=== PATIENT | male | born 1980 | race Caucasian/White ===

== ENCOUNTER 2016-04-19 13:47 | Emergency (ER) | payer OTHER ==
[2016-04-19] MEDS ORDERED: AUGMENTIN 875 MG TAB As Ordered ONE (14:27)
--- NOTE | 2016-04-19 14:41 | EDDOCDS ---
Nurse's Notes [facility] Name: Mikael Oliveira Age: 35 yrs Sex: Male : 1980 Arrival Date: 04/19/2016 Time: 13:47 Bed 13 Private MD: NO PRIMARY PHYSICIAN, . Diagnosis: Dental caries Presentation: 04/19 13:59 Presenting complaint: Patient states: "I need to have a couple of teeth pulled, but ck1 unable to get into my Dentist" C/O pain, worried about infection. Adult Sepsis Screening: The patient does not have new or worsening altered mentation. Patient's respiratory rate is less than 22. Systolic blood pressure is greater than 100. Patient has a qSOFA score of 0- Negative Sepsis Screen. Suicide/Homicide risk assessment- the patient denies having any suicidal and/or homicidal ideations and does not present with any other emotional, behavioral or mental health complaints. 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 Transition of care: patient was not received from another setting of care. 13:59 Acuity: JAMAAL Level 5 ck1 13:59 Method Of Arrival: Walkin/Carried/Asstd ck1 Triage Assessment: 14:01 General: Appears in no apparent distress, comfortable, Behavior is appropriate for age, ck1 cooperative. Pain: Location: mouth Pain currently is 1 out of 10 on a pain scale. HIV screening NA for this visit Offered previously. Neurological: Level of Consciousness is awake, alert, obeys commands, Oriented to person, place, time. EENT: Poor dentition noted. Reports pain Pain is 2 out of 10 on a pain scale. Respiratory: Respiratory effort is unlabored, Respiratory pattern is regular, symmetrical. Derm: Skin is intact, is healthy with good turgor, Skin is pink, warm & dry. Musculoskeletal: No deficits noted. Historical: - Allergies: No known drug Allergies; - Home Meds: 1. Tylenol 250 mg Oral (Last dose: 04/19/2016 12:45) 2. Tylenol 325 mg Oral tab 2 tabs PRN (Last dose: 04/19/2016 09:30) - PMHx: none; - PSHx: none; - Social history: Smoking status: Patient uses tobacco products, heavy tobacco smoker. No barriers to communication noted, The patient speaks fluent Indian, Speaks appropriately for age. - Family history: No immediate family members are acutely ill. - : The pt / caregiver states he / she is not on anticoagulants. Home medication list is obtained from the patient. - Exposure Risk Screening:: None identified. Screenin:38 Screening information is obtained from the patient. Fall risk: No risks identified. mb9 Assistance ADL's: requires no assistance with activities of daily living. Abuse/DV Screen: The patient / caregiver reports he/she is: not in a situation that causes fear, pain or injury. Nutritional screening: No deficits noted. Advance Directives: There is no active DNR order. home support is adequate. Assessment: 14:38 General: Appears uncomfortable, Behavior is appropriate for age, cooperative. Pain: mb9 Location: mouth Pain currently is 6 out of 10 on a pain scale. Respiratory: Airway is patent Respiratory effort is even, unlabored. Vital Signs: 13:49 BP 144 / 78; Pulse 98; Resp 18 S; Temp 97.8(O); Pulse Ox 100% on R/A; Weight 61.23 kg gr2 (R); Height 5 ft. 7 in. (170.18 cm) (R); Pain 3/10; 13:49 Body Mass Index 21.14 (61.23 kg, 170.18 cm) gr2 Vitals: 13:49 Log In Time: April 19, 2016 at 13:49. gr2 ED Course: 13:49 Patient visited by Juliocesar Marrero. gr2 13:49 NO PRIMARY PHYSICIAN, . is Private Physician. gr2 13:49 Patient moved to Waiting gr2 13:50 Patient visited by Juliocesar Marrero. gr2 13:50 Patient moved to Pre RCE gr2 14:00 Triage Initiated ck1 14:14 Arcadio Palmer MD is Attending Physician. br1 14:14 Patient moved to 13 ck1 14:21 Patient visited by Arcadio Palmer MD. br1 14:24 Your, Dentist is Referral Physician. br1 14:38 The patient / caregiver is instructed regarding the plan of care and ED course. mb9 14:38 No IV's were initiated during this patient's visit. No procedures done that require mb9 assistance. Administered Medications: 14:38 Drug: Amoxicillin-Clavulanate 1 tabs [amoxicillin 875 mg-potassium clavulanate 125 mg mb9 tablet (1 tabs)] Route: PO; Order Results: There are currently no results for this order. Outcome: 14:25 Discharge ordered by Provider. br1 14:38 Discharge Assessment: Patient awake, alert and oriented x 3. No cognitive and/or mb9 functional deficits noted. Patient verbalized understanding of disposition instructions. patient administered narcotics - no. The following High Risk Discharge criteria are identified: None. Discharged to home ambulatory. Condition: good Condition: stable Condition: improved. Discharge instructions given to patient, Instructed on discharge instructions, follow up and referral plans. medication usage, no driving heavy equipment, diet, Demonstrated understanding of instructions, medications, Pt was receptive of discharge instructions/ teaching. Prescriptions given X 2. No special radiology studies were completed. Property :Personal belongings accompany Pt. 14:39 Patient left the ED. mb9 Signatures: Minda Zuniga,RN RN ck1 Arcadio Palmer MD MD br1 Juliocesar Marrero gr2 Carmine Quinonez RN RN mb9 SABI
--- NOTE | 2016-04-19 14:41 | EDDOCDS ---
Physician Documentation [facility] Name: Mikael Oliveira Age: 35 yrs Sex: Male : 1980 Arrival Date: 04/19/2016 Time: 13:47 Bed 13 Private MD: NO PRIMARY PHYSICIAN, . Disposition: 04/19/16 14:25 Discharged to Home/Self Care. Impression: Dental caries. - Condition is Stable. - Discharge Instructions: Dental Pain. - Prescriptions for Percocet 5- 325 mg Oral Tablet - take 1 tablet by ORAL route every 6 hours As needed MDD: 4 tabs; 10 tablet. Augmentin 875- 125 mg Oral Tablet - take 1 tablet by ORAL route every 12 hours for 7 days; 14 tablet. - Work Release Form - 1 day, Medication Reconciliation, Local Pharmacy Hours, Dental Referral List form. - Follow up: Your, Dentist; When: 2 - 3 days; Reason: Recheck today's complaints. - Problem is an ongoing problem. - Symptoms have worsened. - Notes: You were seen in the ED for dental pain. You may take the antibiotics as written and may take Percocet as needed for pain (no driving or operating machinery while on this medicine). You will need to arrange follow up with a dentist today for ongoing care - please call to arrange to be seen. Return to the ED for any uncontrolled pain, worsening swelling, fever, trouble breathing or swallowing or any other concerns. Historical: - Allergies: No known drug Allergies; - Home Meds: 1. Tylenol 250 mg Oral (Last dose: 04/19/2016 12:45) 2. Tylenol 325 mg Oral tab 2 tabs PRN (Last dose: 04/19/2016 09:30) - PMHx: none; - PSHx: none; - Social history: Smoking status: Patient uses tobacco products, heavy tobacco smoker. No barriers to communication noted, The patient speaks fluent Latvian, Speaks appropriately for age. - Family history: No immediate family members are acutely ill. - : The pt / caregiver states he / she is not on anticoagulants. Home medication list is obtained from the patient. - Exposure Risk Screening:: None identified. Vital Signs: 04/19 13:49 BP 144 / 78; Pulse 98; Resp 18 S; Temp 97.8(O); Pulse Ox 100% on R/A; Weight 61.23 kg / gr2 134.99 lbs (R); Height 5 ft. 7 in. (170.18 cm) (R); Pain 3/10; 13:49 Body Mass Index 21.14 (61.23 kg, 170.18 cm) gr2 MDM: 14:21 Amoxicillin-Clavulanate 875 mg 1 tabs PO once ordered. br1 14:38 Financial registration complete. mm15 Administered Medications: 14:38 Drug: Amoxicillin-Clavulanate 1 tabs [amoxicillin 875 mg-potassium clavulanate 125 mg mb9 tablet (1 tabs)] Route: PO; Signatures: Minda ZunigaRN RN ck1 Arcadio Palmer MD MD br1 Amrik Thapa mm15 Carmine Quinonez RN RN mb9 MTDHemalatha
--- NOTE | 2016-04-21 15:40 | EDDOCDS ---
Physician Documentation [facility] Name: Mikael Oliveira Age: 35 yrs Sex: Male : 1980 Arrival Date: 04/19/2016 Time: 13:47 Bed 13 Private MD: NO PRIMARY PHYSICIAN, . Disposition: 04/19/16 14:25 Discharged to Home/Self Care. Impression: Dental caries. - Condition is Stable. - Discharge Instructions: Dental Pain. - Prescriptions for Percocet 5- 325 mg Oral Tablet - take 1 tablet by ORAL route every 6 hours As needed MDD: 4 tabs; 10 tablet. Augmentin 875- 125 mg Oral Tablet - take 1 tablet by ORAL route every 12 hours for 7 days; 14 tablet. - Work Release Form - 1 day, Medication Reconciliation, Local Pharmacy Hours, Dental Referral List form. - Follow up: Your, Dentist; When: 2 - 3 days; Reason: Recheck today's complaints. - Problem is an ongoing problem. - Symptoms have worsened. - Notes: You were seen in the ED for dental pain. You may take the antibiotics as written and may take Percocet as needed for pain (no driving or operating machinery while on this medicine). You will need to arrange follow up with a dentist today for ongoing care - please call to arrange to be seen. Return to the ED for any uncontrolled pain, worsening swelling, fever, trouble breathing or swallowing or any other concerns. Historical: - Allergies: No known drug Allergies; - Home Meds: 1. Tylenol 250 mg Oral (Last dose: 04/19/2016 12:45) 2. Tylenol 325 mg Oral tab 2 tabs PRN (Last dose: 04/19/2016 09:30) - PMHx: none; - PSHx: none; - Social history: Smoking status: Patient uses tobacco products, heavy tobacco smoker. No barriers to communication noted, The patient speaks fluent Danish, Speaks appropriately for age. - Family history: No immediate family members are acutely ill. - : The pt / caregiver states he / she is not on anticoagulants. Home medication list is obtained from the patient. - Exposure Risk Screening:: None identified. Vital Signs: 04/19 13:49 BP 144 / 78; Pulse 98; Resp 18 S; Temp 97.8(O); Pulse Ox 100% on R/A; Weight 61.23 kg / gr2 134.99 lbs (R); Height 5 ft. 7 in. (170.18 cm) (R); Pain 3/10; 13:49 Body Mass Index 21.14 (61.23 kg, 170.18 cm) gr2 MDM: 14:21 Amoxicillin-Clavulanate 875 mg 1 tabs PO once ordered. br1 14:38 Financial registration complete. mm15 14:51 [facility] Payment Agreement was scanned into [employer] and attached to record. mm15 04/20 12:23 T-Sheet-- Draft Copy was scanned into [employer] and attached to record. gb Administered Medications: 04/19 14:38 Drug: Amoxicillin-Clavulanate 1 tabs [amoxicillin 875 mg-potassium clavulanate 125 mg mb9 tablet (1 tabs)] Route: PO; Signatures: Dipika Martin, Reg Reg gb Minda ZunigaRN RN ck1 Arcadio Palmer MD MD br1 Amrik Thapa mm15 Carmine Quinonez,JOSE RN mb9 The chart was reviewed and I authenticate all verbal orders and agree with the evaluation and treatment provided.Attachments: 14:51 [facility] Payment Agreement mm15 04/20 12:23 T-Sheet-- Draft Copy gb Chart Complete MTDD
--- NOTE | 2016-04-21 15:40 | EDDOCDS ---
Nurse's Notes [facility] Name: Mikael Oliveira Age: 35 yrs Sex: Male : 1980 Arrival Date: 04/19/2016 Time: 13:47 Bed 13 Private MD: NO PRIMARY PHYSICIAN, . Diagnosis: Dental caries Presentation: 04/19 13:59 Presenting complaint: Patient states: "I need to have a couple of teeth pulled, but ck1 unable to get into my Dentist" C/O pain, worried about infection. Adult Sepsis Screening: The patient does not have new or worsening altered mentation. Patient's respiratory rate is less than 22. Systolic blood pressure is greater than 100. Patient has a qSOFA score of 0- Negative Sepsis Screen. Suicide/Homicide risk assessment- the patient denies having any suicidal and/or homicidal ideations and does not present with any other emotional, behavioral or mental health complaints. 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 Transition of care: patient was not received from another setting of care. 13:59 Acuity: JAMAAL Level 5 ck1 13:59 Method Of Arrival: Walkin/Carried/Asstd ck1 Triage Assessment: 14:01 General: Appears in no apparent distress, comfortable, Behavior is appropriate for age, ck1 cooperative. Pain: Location: mouth Pain currently is 1 out of 10 on a pain scale. HIV screening NA for this visit Offered previously. Neurological: Level of Consciousness is awake, alert, obeys commands, Oriented to person, place, time. EENT: Poor dentition noted. Reports pain Pain is 2 out of 10 on a pain scale. Respiratory: Respiratory effort is unlabored, Respiratory pattern is regular, symmetrical. Derm: Skin is intact, is healthy with good turgor, Skin is pink, warm & dry. Musculoskeletal: No deficits noted. Historical: - Allergies: No known drug Allergies; - Home Meds: 1. Tylenol 250 mg Oral (Last dose: 04/19/2016 12:45) 2. Tylenol 325 mg Oral tab 2 tabs PRN (Last dose: 04/19/2016 09:30) - PMHx: none; - PSHx: none; - Social history: Smoking status: Patient uses tobacco products, heavy tobacco smoker. No barriers to communication noted, The patient speaks fluent Colombian, Speaks appropriately for age. - Family history: No immediate family members are acutely ill. - : The pt / caregiver states he / she is not on anticoagulants. Home medication list is obtained from the patient. - Exposure Risk Screening:: None identified. Screenin:38 Screening information is obtained from the patient. Fall risk: No risks identified. mb9 Assistance ADL's: requires no assistance with activities of daily living. Abuse/DV Screen: The patient / caregiver reports he/she is: not in a situation that causes fear, pain or injury. Nutritional screening: No deficits noted. Advance Directives: There is no active DNR order. home support is adequate. Assessment: 14:38 General: Appears uncomfortable, Behavior is appropriate for age, cooperative. Pain: mb9 Location: mouth Pain currently is 6 out of 10 on a pain scale. Respiratory: Airway is patent Respiratory effort is even, unlabored. Vital Signs: 13:49 BP 144 / 78; Pulse 98; Resp 18 S; Temp 97.8(O); Pulse Ox 100% on R/A; Weight 61.23 kg gr2 (R); Height 5 ft. 7 in. (170.18 cm) (R); Pain 3/10; 13:49 Body Mass Index 21.14 (61.23 kg, 170.18 cm) gr2 Vitals: 13:49 Log In Time: April 19, 2016 at 13:49. gr2 ED Course: 13:49 Patient visited by Juliocesar Marrero. gr2 13:49 NO PRIMARY PHYSICIAN, . is Private Physician. gr2 13:49 Patient moved to Waiting gr2 13:50 Patient visited by Juliocesar Marrero. gr2 13:50 Patient moved to Pre RCE gr2 14:00 Triage Initiated ck1 14:14 Arcadio Palmer MD is Attending Physician. br1 14:14 Patient moved to 13 ck1 14:21 Patient visited by Arcadio Palmer MD. br1 14:24 Your, Dentist is Referral Physician. br1 14:38 The patient / caregiver is instructed regarding the plan of care and ED course. mb9 14:38 No IV's were initiated during this patient's visit. No procedures done that require mb9 assistance. 14:51 [facility] Payment Agreement was scanned into [email or web address] and attached to record. mm15 04/20 12:23 T-Sheet-- Draft Copy was scanned into [email or web address] and attached to record. gb Administered Medications: 04/19 14:38 Drug: Amoxicillin-Clavulanate 1 tabs [amoxicillin 875 mg-potassium clavulanate 125 mg mb9 tablet (1 tabs)] Route: PO; Order Results: There are currently no results for this order. Outcome: 14:25 Discharge ordered by Provider. br1 14:38 Discharge Assessment: Patient awake, alert and oriented x 3. No cognitive and/or mb9 functional deficits noted. Patient verbalized understanding of disposition instructions. patient administered narcotics - no. The following High Risk Discharge criteria are identified: None. Discharged to home ambulatory. Condition: good Condition: stable Condition: improved. Discharge instructions given to patient, Instructed on discharge instructions, follow up and referral plans. medication usage, no driving heavy equipment, diet, Demonstrated understanding of instructions, medications, Pt was receptive of discharge instructions/ teaching. Prescriptions given X 2. No special radiology studies were completed. Property :Personal belongings accompany Pt. 14:39 Patient left the ED. mb9 Signatures: Dipika Martin, Reg Reg Minda Rodriguez,RN RN ck1 Arcadio Palmer MD MD br1 Juliocesar Marrero gr2 Amrik Thapa mm15 Carmine Quinonez,RN RN mb9 Chart Complete MTDD
--- NOTE | 2016-04-21 15:40 | EDDOCDS ---
Physician Documentation [facility] Name: Mikael Oliveira Age: 35 yrs Sex: Male : 1980 Arrival Date: 04/19/2016 Time: 13:47 Bed 13 Private MD: NO PRIMARY PHYSICIAN, . Disposition: 04/19/16 14:25 Discharged to Home/Self Care. Impression: Dental caries. - Condition is Stable. - Discharge Instructions: Dental Pain. - Prescriptions for Percocet 5- 325 mg Oral Tablet - take 1 tablet by ORAL route every 6 hours As needed MDD: 4 tabs; 10 tablet. Augmentin 875- 125 mg Oral Tablet - take 1 tablet by ORAL route every 12 hours for 7 days; 14 tablet. - Work Release Form - 1 day, Medication Reconciliation, Local Pharmacy Hours, Dental Referral List form. - Follow up: Your, Dentist; When: 2 - 3 days; Reason: Recheck today's complaints. - Problem is an ongoing problem. - Symptoms have worsened. - Notes: You were seen in the ED for dental pain. You may take the antibiotics as written and may take Percocet as needed for pain (no driving or operating machinery while on this medicine). You will need to arrange follow up with a dentist today for ongoing care - please call to arrange to be seen. Return to the ED for any uncontrolled pain, worsening swelling, fever, trouble breathing or swallowing or any other concerns. Historical: - Allergies: No known drug Allergies; - Home Meds: 1. Tylenol 250 mg Oral (Last dose: 04/19/2016 12:45) 2. Tylenol 325 mg Oral tab 2 tabs PRN (Last dose: 04/19/2016 09:30) - PMHx: none; - PSHx: none; - Social history: Smoking status: Patient uses tobacco products, heavy tobacco smoker. No barriers to communication noted, The patient speaks fluent Bengali, Speaks appropriately for age. - Family history: No immediate family members are acutely ill. - : The pt / caregiver states he / she is not on anticoagulants. Home medication list is obtained from the patient. - Exposure Risk Screening:: None identified. Vital Signs: 04/19 13:49 BP 144 / 78; Pulse 98; Resp 18 S; Temp 97.8(O); Pulse Ox 100% on R/A; Weight 61.23 kg / gr2 134.99 lbs (R); Height 5 ft. 7 in. (170.18 cm) (R); Pain 3/10; 13:49 Body Mass Index 21.14 (61.23 kg, 170.18 cm) gr2 MDM: 14:21 Amoxicillin-Clavulanate 875 mg 1 tabs PO once ordered. br1 14:38 Financial registration complete. mm15 14:51 [facility] Payment Agreement was scanned into [employer] and attached to record. mm15 04/20 12:23 T-Sheet-- Draft Copy was scanned into [employer] and attached to record. gb Administered Medications: 04/19 14:38 Drug: Amoxicillin-Clavulanate 1 tabs [amoxicillin 875 mg-potassium clavulanate 125 mg mb9 tablet (1 tabs)] Route: PO; Signatures: Dipika Martin, Reg Reg gb Minda ZunigaRN RN ck1 Arcadio Palmer MD MD br1 Amrik Thapa mm15 Carmine Quinonez,JOSE RN mb9 The chart was reviewed and I authenticate all verbal orders and agree with the evaluation and treatment provided.Attachments: 14:51 [facility] Payment Agreement mm15 04/20 12:23 T-Sheet-- Draft Copy gb Chart Complete MTDD
== END 2016-04-19 14:39 | disposition home or self-care (01) ==
LOC: M ED 13:47
DX: K02.9 Dental caries, unspecified (principal); F17.210 Nicotine dependence, cigarettes, uncomplicated

== ENCOUNTER 2018-05-09 12:26 | Emergency (ER) | payer OTHER, SELFPAY ==
[~2018-05-09] VITALS: Ht 170.2 cm; Wt 63.6 kg
[2018-05-09 12:27] VITALS: BP 129/84
== END 2018-05-09 12:59 | disposition home or self-care (01) ==
LOC: M ED 12:26
DX: K52.9 Noninfective gastroenteritis and colitis, unspecified (principal)

== ENCOUNTER 2018-10-22 10:59 | Emergency (ER) | payer BC, SELFPAY ==
[~2018-10-22] VITALS: Ht 167.6 cm; Wt 68.2 kg
[2018-10-22 10:59] VITALS: BP 135/80
[2018-10-22] MEDS ORDERED: APAP325T4 PO (11:03)
[2018-10-22] MEDS ORDERED: NAPR-837 PO (11:34)
--- NOTE | 2018-10-22 12:04 | REP ---
RIGHT ANKLE, FOUR VIEWS: HISTORY: Fall. There is no acute fracture or dislocation. The joint space is normal in appearance. IMPRESSION: There is no acute fracture or dislocation. Electronically Signed by João Bang MD 10/22/2018 12:15 P
== END 2018-10-22 11:56 | disposition home or self-care (01) ==
LOC: M ED 10:59
DX: S93.401A Sprain of unspecified ligament of right ankle, initial encounter (principal); X50.9XXA Other and unspecified overexertion or strenuous movements or postures, initial encounter; Y92.008 Other place in unspecified non-institutional (private) residence as the place of occurrence of the external cause; F17.210 Nicotine dependence, cigarettes, uncomplicated

== ENCOUNTER 2019-02-17 08:38 | Emergency (ER) | payer OTHER, SELFPAY ==
[~2019-02-17] VITALS: Ht 170.2 cm; Wt 67.6 kg
[~2019-02-17 08:38] MED LIST: APAP325T4 PO; NAPR-837 PO
[2019-02-17] MEDS ORDERED: NS 1,000 ML IV ONE (09:30)
[2019-02-17 10:00] LABS: BASO % 0.4 % (0.0-1.0); EOS % 0.2 % (0.0-3.0); HEMATOCRIT 48.8 % (42.0-52.0); HEMOGLOBIN 16.9 g/dl (13.5-17.5); LYMPH # 1.3 10^3/uL (1.5-5.0); LYMPH % 14.1 % (24.0-44.0); MEAN CORPUSCULAR HEMOGLOBIN 32.8 pg (27.0-33.0); MEAN CORPUSCULAR HGB CONC 34.6 g/dl (32.0-36.5); MEAN CORPUSCULAR VOLUME 94.8 fl (80.0-96.0); MONO # 1.6 10^3/uL (0.0-0.8); MONO % 17.4 % (0.0-5.0); NEUTROPHILS # 6.1 10^3/uL (1.5-8.5); NEUTROPHILS % 67.5 % (36.0-66.0); PLATELET COUNT, AUTOMATED 285 10^3/uL (150-450); RED BLOOD COUNT 5.15 10^6/uL (4.30-6.10); WHITE BLOOD COUNT 9.1 10^3/uL (4.0-10.0)
[2019-02-17 10:25] LABS: BLOOD UREA NITROGEN 7 MG/DL (7-18); CALCIUM LEVEL 9.3 MG/DL (8.5-10.1); CARBON DIOXIDE LEVEL 29 MEQ/L (21-32); CHLORIDE LEVEL 101 MEQ/L (98-107); CREATININE FOR GFR 1.19 MG/DL (0.70-1.30); GLOMERULAR FILTRATION RATE > 60.0 (>60); GLUCOSE, FASTING 108 MG/DL (70-100); POTASSIUM SERUM 3.8 MEQ/L (3.5-5.1); SODIUM LEVEL 134 MEQ/L (136-145)
[2019-02-17 10:59] VITALS: BP 143/97
[2019-02-17 11:02] LABS: APPEARANCE, URINE CLEAR (CLEAR); BACTERIA, URINE AUTO NEGATIVE (NEGATIVE); BILIRUBIN, URINE AUTO NEGATIVE (NEGATIVE); BLOOD, URINE BLOOD NEGATIVE (NEGATIVE); COLOR, URINE YELLOW (YELLOW); GLUCOSE, URINE (UA) AUTO NEGATIVE (NEGATIVE); KETONE, URINE AUTO NEGATIVE (NEGATIVE); LEUKOCYTE ESTERASE, URINE AUTO NEGATIVE (NEGATIVE); NITRITE, URINE AUTO NEGATIVE (NEGATIVE); PROTEIN, URINE AUTO NEGATIVE (NEGATIVE); RBC, URINE AUTO 1 /HPF (0-3); SPECIFIC GRAVITY URINE AUTO 1.008 (1.002-1.035); SQUAMOUS EPITHELIAL CELL UR AU 0 /HPF (0-6); UROBILINOGEN, URINE AUTO 0.2 mg/dL (0.0-2.0); WBC, URINE AUTO 1 /HPF (0-3)
[2019-02-17] MEDS ORDERED: PENI500T PO (11:03)
== END 2019-02-17 11:14 | disposition home or self-care (01) ==
LOC: M ED 08:38
DX: K04.7 Periapical abscess without sinus (principal); F17.210 Nicotine dependence, cigarettes, uncomplicated; Z86.19 Personal history of other infectious and parasitic diseases

== ENCOUNTER 2020-06-07 11:43 | Emergency (ER) | payer OTHER ==
[~2020-06-07] VITALS: Ht 170.2 cm; Wt 70.4 kg
[~2020-06-07 11:43] MED LIST changes: +PENI500T PO
[2020-06-07 11:44] VITALS: BP 138/94
--- NOTE | 2020-06-07 14:01 | REP ---
INDICATION: injury/redness COMPARISON: None. TECHNIQUE: Four views right elbow. FINDINGS: There is no evidence of acute fracture, dislocation, or intrinsic bone disease.An oval smooth calcification is seen adjacent to the medial humeral epicondyle measuring 5 x 2 mm, likely tendinous. No joint effusion is seen. IMPRESSION: No fracture or dislocation. A 5 x 2 mm calcification adjacent to the medial humeral epicondyle is likely tendinous. <Electronically signed by Narendra Martell > 06/07/20 [id number]
[2020-06-07 14:18] LABS: BASO # 0.1 10^3/uL (0.0-0.2); BASO % 0.5 % (0.0-1.0); EOS % 0.3 % (0.0-3.0); HEMATOCRIT 45.2 % (42.0-52.0); HEMOGLOBIN 15.4 g/dl (13.5-17.5); LYMPH # 1.5 10^3/uL (1.5-5.0); LYMPH % 15.7 % (24.0-44.0); MEAN CORPUSCULAR HEMOGLOBIN 33.3 pg (27.0-33.0); MEAN CORPUSCULAR HGB CONC 34.1 g/dl (32.0-36.5); MEAN CORPUSCULAR VOLUME 97.6 fl (80.0-96.0); MONO # 1.2 10^3/uL (0.0-0.8); MONO % 12.2 % (2.0-8.0); NEUTROPHILS # 6.9 10^3/uL (1.5-8.5); NEUTROPHILS % 70.8 % (36.0-66.0); PLATELET COUNT, AUTOMATED 316 10^3/uL (150-450); RED BLOOD COUNT 4.63 10^6/uL (4.30-6.10); WHITE BLOOD COUNT 9.7 10^3/uL (4.0-10.0)
[2020-06-07 14:37] LABS: BLOOD UREA NITROGEN 8 MG/DL (7-18); C REACTIVE PROTEIN QUANTITATIV 5.27 MG/DL (0.00-0.30); CARBON DIOXIDE LEVEL 30 MEQ/L (21-32); CHLORIDE LEVEL 105 MEQ/L (98-107); GLOMERULAR FILTRATION RATE > 60.0 (>60); GLUCOSE, FASTING 101 MG/DL (70-100); POTASSIUM SERUM 4.4 MEQ/L (3.5-5.1); SODIUM LEVEL 139 MEQ/L (136-145)
[2020-06-07 14:41] LABS: ERYTHROCYTE SEDIMENTATION RATE 29 mm/hr (0-15)
[2020-06-07] MEDS ORDERED: BOOSTRIX/ADACEL VACCINE (DIPHTH/PERTUSS/ACELL/TETANUS) 0.5ML SYR IM ONE (15:00)
[2020-06-07] MEDS ORDERED: SULF200S10 PO (15:10)
== END 2020-06-07 15:22 | disposition home or self-care (01) ==
LOC: M ED 11:43
DX: L03.113 Cellulitis of right upper limb (principal); W22.8XXA Striking against or struck by other objects, initial encounter; Y92.9 Unspecified place or not applicable; Y93.9 Activity, unspecified; Y99.0 Civilian activity done for income or pay

== ENCOUNTER 2023-04-24 12:02 | Emergency (ER) | payer BC, OTHER ==
[~2023-04-24] VITALS: Ht 170.2 cm; Wt 68.2 kg
[~2023-04-24 12:02] MED LIST changes: +SULF473O2 PO
[2023-04-24 14:51] VITALS: BP 138/86; TEMP 98.2; O2SAT 98
== END 2023-04-24 14:52 | disposition home or self-care (01) ==
LOC: M ED 12:02
DX: S23.3XXA Sprain of ligaments of thoracic spine, initial encounter (principal); F17.200 Nicotine dependence, unspecified, uncomplicated; F10.10 Alcohol abuse, uncomplicated; F12.10 Cannabis abuse, uncomplicated; Y92.009 Unspecified place in unspecified non-institutional (private) residence as the place of occurrence of the external cause; Y93.89 Activity, other specified; Y99.9 Unspecified external cause status

== ENCOUNTER 2025-02-25 17:06 | Emergency (ER) | payer SELFPAY ==
[~2025-02-25] VITALS: Ht 170.2 cm; Wt 80.7 kg
[~2025-02-25 17:06] MED LIST changes: +SULF200S26 PO; -SULF473O2 PO
[2025-02-25 18:09] LABS: ALT/SGPT 183 U/L (7.0-40); AST/SGOT 79 U/L (<34); CALCIUM LEVEL 9.4 MG/DL (8.5-10.1); CARBON DIOXIDE LEVEL 27 MMOL/L (20-31); CHLORIDE LEVEL 101 MMOL/L (98-107); CK-MB VALUE MASS 2.4 NG/ML (<3.6); CREATININE FOR GFR 0.95 MG/DL (0.70-1.30); GLOMERULAR FILTRATION RATE > 90.0 (>60); POTASSIUM SERUM 3.8 MMOL/L (3.5-5.1); SODIUM LEVEL 138 MMOL/L (136-145)
[2025-02-25 18:11] LABS: CPK CREATINE PHOSPHOKINASE 270 U/L (46-171); FREE T4 1.46 NG/DL (0.89-1.76); MB/CK RELATIVE INDEX 0.88 (< OR =4)
[2025-02-25 18:14] LABS: BASO # 0.1 10^3/uL (0.0-0.2); BASO % 0.7 % (0.0-1.0); EOS # 0.1 10^3/uL (0.0-0.5); EOS % 1.1 % (0.0-3.0); LYMPH # 2.7 10^3/uL (1.5-5.0); LYMPH % 28.3 % (24.0-44.0); MONO # 1.2 10^3/uL (0.0-0.8); MONO % 12.2 % (2.0-8.0); NEUTROPHILS # 5.4 10^3/uL (1.5-8.5); NEUTROPHILS % 57.2 % (36.0-66.0); PLATELET COUNT, AUTOMATED 311 10^3/uL (150-450)
[2025-02-25 19:15] VITALS: TEMP 98.2
[2025-02-25 19:15] LABS: CK-MB VALUE MASS 2.3 NG/ML (<3.6)
[2025-02-25 19:20] LABS: CPK CREATINE PHOSPHOKINASE 263.0 U/L (46-171); MB/CK RELATIVE INDEX 0.87 (< OR =4)
[2025-02-25 20:00] VITALS: BP 138/96; O2SAT 97
== END 2025-02-25 20:00 | disposition home or self-care (01) ==
LOC: M ED 17:06
DX: R07.9 Chest pain, unspecified (principal); R00.0 Tachycardia, unspecified; I45.81 Long QT syndrome; F17.200 Nicotine dependence, unspecified, uncomplicated; K21.9 Gastro-esophageal reflux disease without esophagitis; F10.10 Alcohol abuse, uncomplicated; F12.10 Cannabis abuse, uncomplicated